=== PATIENT | male | born 1935 | race Caucasian/White ===

== ENCOUNTER → 2016-07-25 | Outpatient (CLI) | payer MEDICARE, BC | LOC: KOH-I 13:15 | DX: R94.4 Abnormal results of kidney function studies (principal); N28.1 Cyst of kidney, acquired; N40.0 Benign prostatic hyperplasia without lower urinary tract symptoms | CPT/HCPCS: 76775 ==

== ENCOUNTER → 2016-08-11 | Outpatient (CLI) | payer MEDICARE, BC | LOC: KOH-I 12:31 | DX: R55 Syncope and collapse (principal) | CPT/HCPCS: 93880 ==

== ENCOUNTER → 2016-09-01 | Outpatient (CLI) | payer MEDICARE, BC | LOC: US 14:00 | DX: N40.0 Benign prostatic hyperplasia without lower urinary tract symptoms (principal) | CPT/HCPCS: 76870 ==

== ENCOUNTER → 2016-09-21 | Outpatient (CLI) | payer MEDICARE, BC | LOC: CT 07:34 → LAB 07:34 → CT 08:00 | DX: R42 Dizziness and giddiness (principal); R55 Syncope and collapse | CPT/HCPCS: 36415; 70470; 82565; 84520; J7050; Q9965 ==

== ENCOUNTER → 2020-04-20 | Outpatient (CLI) | payer MEDICARE ==
[~2020-04-20] MED LIST: ACCUPRIL20 MG PO; AMLODIPINE BESYL5 MG PO; APPLE CIDER PO; ASPIRIN CHEWABL81 MG PO; DYAZIDE 37.5/251 EA PO; ENOXAPARIN40 MG/0.4 SC; EPINEPHRINE IM; FERROUS SULFAT325 M2 PO; FISH OIL 1,0001 EAC4 PO; FLOMAX0.4 MG PO; GARLIC1 EAC1 PO; HONEY PO; HYDRALAZINE HCL10 MG PO; IPRAT-ALBUT 0.5-3 ML INH; LEVAQUIN500 MG PO; LEXAPRO20 MG PO; LOPRESSOR50 MG PO; PANTOPRAZOLE SO40 MG PO; PERCOCET 10-321 EACH PO; PLAVIX 75 MG TA75 MG PO; PREDNISONE10 MG PO; PROBIOTIC1 EACH PO; SIMVASTATIN20 MG PO; VITAMIN B-121000 MCG PO; VITAMIN C 500500 MG PO; VITAMIN E1000 UNI2 PO; ZETIA10 MG PO; ZINC GLUCONATE100 MG PO; ZINC50 M1 PO; ZOCOR20 MG PO
== END ==
LOC: KOH-I 10:44
DX: I11.0 Hypertensive heart disease with heart failure (principal); I50.9 Heart failure, unspecified; I48.0 Paroxysmal atrial fibrillation; R06.02 Shortness of breath; J90 Pleural effusion, not elsewhere classified
CPT/HCPCS: 71046

== ENCOUNTER 2021-01-20 20:23 | Inpatient (IN) | payer MEDICARE ==
[~2021-01-20] VITALS: Ht 182.9 cm; Wt 99.3 kg
[2021-01-20 21:18] LABS: HEMOGLOBIN 14.8 gm/dl (14.0-17.5); RED BLOOD COUNT 4.54 M/UL (4.20-5.50)
[2021-01-21] MEDS ORDERED: MAXZIDE 37.5/21 EACH PO (02:24)
[2021-01-21] MEDS ORDERED: QUETIAPINE FUMA50 MG PO (02:27)
[2021-01-22 02:52] LABS: HEMOGLOBIN 13.7 gm/dl (14.0-17.5); RED BLOOD COUNT 4.31 M/UL (4.20-5.50); WHITE BLOOD COUNT 6.6 K/UL (4.5-11.0)
--- NOTE | 2021-01-22 05:28 | NUR ---
PATIENT IS BEING NONCOMPLIANT WITH MONTIORING AND STAYING IN THE BED. PATIENT IS AGITATED AND AGGRESSIVE WITH STAFF. BED ALARM IS ON, HE IS CLOSE TO THE NURSES STATION. BED LOCKED AND IN LOWEST POSITION. REMINDED TO NOT GET UP WITHOUT STAFF PRESENT DUE TO HISTORY OF FALLS. PATIENT ARGUED WITH STAFF THAT HE WOULD GET UP IF HE WANTED TO. AT THIS TIME PATIENT IS A&O X4 AND ANSWERS QUESTIONS.
[2021-01-22] MEDS ORDERED: ELIQUIS 2.5 MG2.5 MG PO (10:38)
== END 2021-01-22 11:30 | disposition home or self-care (01) | DRG 281 ==
LOC: ER1 20:23 → PROG CARE 22:53 → CDU 22:53 → PROG CARE 01-21 01:48
PROVIDERS: Emergency Medicine; Internal Medicine; ADMIT Internal Medicine
PROC: 3E0234Z Introduction of Serum, Toxoid and Vaccine into Muscle, Percutaneous Approach (ICD-10-PCS; principal; 2021-01-20)
PROC: B24BZZ4 Ultrasonography of Heart with Aorta, Transesophageal (ICD-10-PCS; 2021-01-21)
DX: I21.4 Non-ST elevation (NSTEMI) myocardial infarction (principal); G45.9 Transient cerebral ischemic attack, unspecified; G93.40 Encephalopathy, unspecified; N17.9 Acute kidney failure, unspecified; Z20.822 Contact with and (suspected) exposure to COVID-19; F03.90 Unspecified dementia, unspecified severity, without behavioral disturbance, psychotic disturbance, mood disturbance, and anxiety; R79.89 Other specified abnormal findings of blood chemistry; F32.9 Major depressive disorder, single episode, unspecified; F41.9 Anxiety disorder, unspecified; F22 Delusional disorders; M48.02 Spinal stenosis, cervical region; I13.10 Hypertensive heart and chronic kidney disease without heart failure, with stage 1 through stage 4 chronic kidney disease, or unspecified chronic kidney disease; I25.10 Atherosclerotic heart disease of native coronary artery without angina pectoris; S01.81XA Laceration without foreign body of other part of head, initial encounter; I49.5 Sick sinus syndrome; W22.8XXA Striking against or struck by other objects, initial encounter; Z96.642 Presence of left artificial hip joint; Z96.649 Presence of unspecified artificial hip joint; I48.0 Paroxysmal atrial fibrillation; I08.1 Rheumatic disorders of both mitral and tricuspid valves; I27.20 Pulmonary hypertension, unspecified; E87.6 Hypokalemia; N18.30 Chronic kidney disease, stage 3 unspecified; M19.90 Unspecified osteoarthritis, unspecified site; E78.5 Hyperlipidemia, unspecified; N40.0 Benign prostatic hyperplasia without lower urinary tract symptoms; Z95.0 Presence of cardiac pacemaker; Z95.5 Presence of coronary angioplasty implant and graft; Z87.01 Personal history of pneumonia (recurrent); Z87.440 Personal history of urinary (tract) infections; Z88.2 Allergy status to sulfonamides; Z79.01 Long term (current) use of anticoagulants; Z23 Encounter for immunization
CPT/HCPCS: ECHO; 36415; 70450; 71045; 78452; 80048; 80053; 80061; 80307; 81001; 82140; 82550; 82553; 82607; 82746; 83036; 83735; 83874; 83880; 84100; 84484; 84550; 85025; 85027; 85610; 85730; 90471; 90715; 93005; 93017; 93306; 95819; 99285; A9502; J1644; J2785; U0002

== ENCOUNTER 2021-10-02 17:47 | Emergency (ER) | payer MEDICARE ==
[~2021-10-02 17:47] MED LIST changes: +ELIQUIS 2.5 MG2.5 MG PO; +MAXZIDE 37.5/21 EACH PO; +QUETIAPINE FUMA50 MG PO
== END 2021-10-02 22:41 | disposition home or self-care (01) ==
LOC: ER1 17:47
DX: M25.511 Pain in right shoulder (principal); M25.561 Pain in right knee; M25.521 Pain in right elbow; I10 Essential (primary) hypertension; W01.0XXA Fall on same level from slipping, tripping and stumbling without subsequent striking against object, initial encounter; Y92.009 Unspecified place in unspecified non-institutional (private) residence as the place of occurrence of the external cause
CPT/HCPCS: 71045; 73030; 73070; 73564; 73630; 99283